=== PATIENT | male | born 1990 | race Hispanic/Latino ===

== ENCOUNTER 2023-07-20 17:45 | Emergency (ER) | payer OTHER ==
--- NOTE | 2023-07-20 18:00 | EDPHYS ---
Physician Documentation [facility] Name: Prem Lr Age: 33 yrs Sex: Male : 1990 Arrival Date: 07/20/2023 Time: 17:45 Bed 10 Private MD: ED Physician Lew Knight HPI: 07/20 17:58 This 33 yrs old Male presents to ER via Unassigned with complaints of STD Exposure. kb 17:58 Pt states he was exposed to syphilis, got tested in [place] prior to coming here for work. kb Clinic called him today and informed him his test was positive for syphilis and he needed to come to the ER for treatment. Pt denies any symptoms. Severity of symptoms: At their worst the symptoms were very mild in the emergency department the symptoms are unchanged. The patient has not experienced similar symptoms in the past. The patient has not recently seen a physician. Historical: - Allergies: 18:03 No Known Allergies; iw - Home Meds: 18:03 None [Active]; iw - PMHx: 18:03 None; iw - Social history:: Smoking status: . ROS: 17:58 Constitutional: Negative for fever, chills, and weight loss. kb 17:58 All other systems are negative. Exam: 17:58 Constitutional: This is a well developed, well nourished patient who is awake, alert, kb and in no acute distress. Head/Face: Normocephalic, atraumatic. ENT: Moist Mucous membranes Cardiovascular: Regular rate Respiratory: Respirations even and unlabored. No increased work of breathing. Talking in full sentences Abdomen/GI: Soft, non-tender. No distention Skin: Warm, dry with normal turgor. Normal color. MS/ Extremity: Pulses equal, no cyanosis. Neurovascular intact. Full, normal range of motion. Neuro: Awake and alert, GCS 15, oriented to person, place, time, and situation. Moves all extremities. Normal gait. Vital Signs: 18:03 BP 112 / 73; Pulse 62; Resp 16; Temp 98.6; Pulse Ox 98% on R/A; iw MDM: 17:49 Patient medically screened. kb 17:57 Differential diagnosis: syphilis, gonorrhea, chlamydia. Data reviewed: vital signs, kb nurses notes. External Records Reviewed: Outpatient labs: reviewed outpatient lab which was resulted on 07/19/23. Syphilis positive. Counseling: I had a detailed discussion with the patient and/or guardian regarding the historical points, exam findings, and any diagnostic results supporting the discharge/admit diagnosis, the need for outpatient follow up, a family practitioner, to return to the emergency department if symptoms worsen or persist or if there are any questions or concerns that arise at home. Administered Medications: 18:40 Drug: penicillin G Benzathine IM 2.4 million units Route: IM; Site: left vastus iw lateralis; Disposition: 20:55 Co-signature as Attending Physician, Lew Knight DO I was immediately available on-site ms3 in the Emergency Department for consultation in the care of the patient. Disposition Summary: 07/20/23 17:59 Discharge Ordered Location: Home kb Condition: Stable kb Diagnosis - Syphilis, unspecified kb Followup: kb - With: Emergency Department - When: As needed - Reason: Worsening of condition Followup: kb - With: Private Physician - When: 2 - 3 days - Reason: Recheck today's complaints, Continuance of care, Re-evaluation by your physician Discharge Instructions: - Discharge Summary Sheet kb - Syphilis kb Forms: - Medication Reconciliation Form kb - Thank You Letter kb - Antibiotic Education kb - Prescription Opioid Use kb - Patient Portal Instructions kb - Leadership Thank You Letter kb Signatures: Wendy Olivares FNP-C FNP-Melissa Talley, RN RN Lew Oliveira DO DO ms3
[2023-07-20] MEDS ORDERED: PEN G BENZ LA 2.4 MU/4 ML SYRINGE IM ONE (18:18)
--- NOTE | 2023-07-20 18:56 | ER ---
Nurse's Notes [facility] Name: Prem Lr Age: 33 yrs Sex: Male : 1990 Arrival Date: 07/20/2023 Time: 17:45 Bed 10 Private MD: Diagnosis: Syphilis, unspecified Presentation: 07/20 18:03 Chief complaint: Patient states: was exposed to syphilis. Coronavirus screen: At this iw time, the client does not indicate any symptoms associated with coronavirus-19. Ebola Screen: Patient negative for fever greater than or equal to 101.5 degrees Fahrenheit, and additional compatible Ebola Virus Disease symptoms Patient denies exposure to infectious person. Patient denies travel to an Ebola-affected area in the 21 days before illness onset. No symptoms or risks identified at this time. Initial Sepsis Screen: Does the patient meet any 2 criteria? No. Patient's initial sepsis screen is negative. Does the patient have a suspected source of infection? No. Patient's initial sepsis screen is negative. Risk Assessment: Do you want to hurt yourself or someone else? Patient reports no desire to harm self or others. Onset of symptoms was July 20, 2023. 18:03 Method Of Arrival: Ambulatory iw 18:03 Acuity: FAIZAN 4 iw Historical: - Allergies: 18:03 No Known Allergies; iw - Home Meds: 18:03 None [Active]; iw - PMHx: 18:03 None; iw - Social history:: Smoking status: . Vital Signs: 18:03 BP 112 / 73; Pulse 62; Resp 16; Temp 98.6; Pulse Ox 98% on R/A; iw ED Course: 17:48 Patient arrived in ED. im 17:49 Wendy Olivares FNP-C [facility]. kb 17:49 Lew Knight DO is Attending Physician. kb 18:03 Melissa Pink, ARACELI is Primary Nurse. iw 18:03 Triage completed. iw Administered Medications: 18:40 Drug: penicillin G Benzathine IM 2.4 million units Route: IM; Site: left vastus iw lateralis; Outcome: 17:59 Discharge ordered by MD. kb 18:56 Patient left the ED. iw Signatures: Wendy Olivares FNP-C FNP-Melissa Talley, ARACELI RN Mimi Zimmer Corrections: (The following items were deleted from the chart) 18:04 18:03 Resp 16bpm; Pulse Ox 98% RA; Temp 98.6F; carlee bejaarno
[2023-07-20 19:07] VITALS: BP 112/73; TEMP 98.6; O2SAT 98
== END 2023-07-20 18:56 | disposition home or self-care (01) ==
LOC: ER 17:45
DX: A53.9 Syphilis, unspecified (principal)
CPT/HCPCS: 96372; 99283; J0561